=== PATIENT | female | born 1990 | race Caucasian/White ===

== ENCOUNTER 2022-04-11 07:57 | Emergency (ER) | payer OTHER, SELFPAY | END 2022-04-11 08:50 | disposition home or self-care (01) | LOC: NAV ERS 07:57 | DX: H65.92 Unspecified nonsuppurative otitis media, left ear (principal); K08.89 Other specified disorders of teeth and supporting structures; K21.9 Gastro-esophageal reflux disease without esophagitis; F17.210 Nicotine dependence, cigarettes, uncomplicated; Z79.899 Other long term (current) drug therapy | CPT/HCPCS: 99282 ==